=== PATIENT | female | born 1995 | race American Indian/Alaskan Native ===

== ENCOUNTER 2017-10-14 14:37 | Emergency (ER) | payer BC ==
[2017-10-14 15:48] LABS: Basophils % (Auto) 0.6 % (0.0-1.8); Eosinophils % (Auto) 0.3 % (0.0-4.3); Hematocrit 37.8 % (30.3-42.9); Hemoglobin 12.4 gm/dl (10.1-14.3); Mean Corpuscular HGB Conc 33 % (30-34); Mean Corpuscular Hemoglobin 27 pg (28-32); Mean Corpuscular Volume 83 fl (79-97); Platelet Count 173 K/mm3 (140-440); Red Blood Count 4.55 M/mm3 (3.65-5.03); Red Cell Distribution Width 14.4 % (13.2-15.2); White Blood Count 8.5 K/mm3 (4.5-11.0)
[2017-10-14 15:50] LABS: Urine Drugs of Abuse Note Disclamer
[2017-10-14 15:51] LABS: Anion Gap 16 mmol/L; BUN/Creatinine Ratio 13; Blood Urea Nitrogen 8 mg/dL (7-17); Calcium 8.5 mg/dL (8.4-10.2); Carbon Dioxide 22 mmol/L (22-30); Chloride 106.1 mmol/L (98-107); Glucose 79 mg/dL (65-100); Potassium 3.4 mmol/L (3.6-5.0); Sodium 141 mmol/L (137-145)
[2017-10-14 16:07] LABS: Creatine Kinase MB 1.7 ng/mL (0.0-4.0)
[2017-10-14 16:08] LABS: Creatine Kinase 192 units/L (30-135)
--- NOTE | 2017-10-14 16:20 | Emergency Department Report ---
ED Psych HPI - General Chief Complaint: Psych Stated Complaint: ATTEMPTED SUICIDE Time Seen by Provider: 10/14/17 15:19 Source: patient, EMS Mode of arrival: Stretcher - History of Present Illness Initial Comments: 22 YO MERARI WHO BECAME DEPRESSED ONE WEEK AGO AND THEN RESEARCH ON [employer] HOW TO KILL HERSELF WITH CARBON MONOXIDE POISONING. SHE DID NOT DISCUSS WHAT PROMPTD HER TO ATTEMPT TO KILL HERSELF BUT JUST CRIED WHILE SHE SPOKE ME. MD Complaint: suicidal ideation, feels depressed -: week(s) (1) Associated Psychiatric Symptoms: depression, suicidal ideation History of same: No - Related Data Allergies Allergy/AdvReac Type Severity Reaction Status Date / Time No Known Allergies Allergy Unverified 10/14/17 14:41 ED Review of Systems ROS: Stated complaint: ATTEMPTED SUICIDE Other details as noted in HPI Constitutional: denies: chills, fever Eyes: denies: eye pain, eye discharge, vision change ENT: denies: ear pain, throat pain Respiratory: denies: cough, shortness of breath, wheezing Cardiovascular: denies: chest pain, palpitations Endocrine: no symptoms reported Gastrointestinal: denies: abdominal pain, nausea, diarrhea Genitourinary: denies: urgency, dysuria, discharge Musculoskeletal: denies: back pain, joint swelling, arthralgia Skin: denies: rash, lesions Neurological: denies: headache, weakness, paresthesias Psychiatric: depression. denies: anxiety Hematological/Lymphatic: denies: easy bleeding, easy bruising ED Past Medical Hx - Past Medical History Previous Medical History?: Yes Hx Psychiatric Treatment: Yes (hx of SA) - Surgical History Past Surgical History?: No - Social History Smoking Status: Current Every Day Smoker Substance Use Type: Marijuana ED Physical Exam - General Limitations: No Limitations General appearance: alert, in distress (SMELLS OF SMOKE) - Head Head exam: Present: atraumatic, normocephalic - Eye Eye exam: Present: normal appearance, EOMI - ENT ENT exam: Present: mucous membranes moist - Neck Neck exam: Present: normal inspection - Respiratory Respiratory exam: Present: normal lung sounds bilaterally. Absent: respiratory distress, wheezes - Cardiovascular Cardiovascular Exam: Present: normal rhythm, tachycardia. Absent: systolic murmur, diastolic murmur, rubs, gallop - GI/Abdominal GI/Abdominal exam: Present: soft, normal bowel sounds. Absent: distended, tenderness - Rectal Rectal exam: Present: deferred - Extremities Exam Extremities exam: Present: normal inspection, full ROM - Back Exam Back exam: Present: normal inspection, full ROM - Neurological Exam Neurological exam: Present: alert, oriented X3, CN II-XII intact - Psychiatric Psychiatric exam: Present: depressed - Skin Skin exam: Present: warm, dry, intact, normal color. Absent: rash ED Course Vital Signs 10/14/17 10/14/17 10/14/17 14:41 15:17 18:30 Temperature 98.5 F 98 F Pulse Rate 112 H 94 H 73 Respiratory 22 20 16 Rate Blood Pressure 162/88 Blood Pressure 158/95 117/65 [Left] O2 Sat by Pulse 100 100 Oximetry 10/14/17 19:23 Temperature Pulse Rate Respiratory Rate Blood Pressure Blood Pressure [Left] O2 Sat by Pulse 100 Oximetry ED Medical Decision Making - Lab Data Result diagrams: 10/14/17 15:19 10/14/17 15:19 - EKG Data -: EKG Interpreted by Me EKG shows normal: sinus rhythm, axis, intervals, QRS complexes - EKG Data Interpretation: nonspecific ST-T wave ana laura - Radiology Data Radiology results: report reviewed (CXR: NEGATIVE) - Medical Decision Making I WILL NOT TREAT FOR UTI I FEEL THT THE PT HAS A DIRTY URINE SAMPLE. Critical care attestation.: If time is entered above; I have spent that time in minutes in the direct care of this critically ill patient, excluding procedure time. ED Disposition Clinical Impression: Suicide attempt, Marijuana abuse, Hypokalemia Depression Qualifiers: Depression Type: unspecified Qualified Code(s): F32.9 - Major depressive disorder, single episode, unspecified Obesity Qualifiers: Obesity type: due to excess calories Obesity classification: adult class 3 ( BMI >= 40) Serious obesity comorbidity presence: without serious comorbidity Body mass index: BMI 45.0-49.9 Qualified Code(s): E66.01 - Morbid (severe) obesity due to excess calories; Z68.42 - Body mass index (BMI) 45.0-49.9, adult ; Z68.42 - Body mass index (BMI) 45.0-49.9, adult; Z68.42 - Body mass index (BMI ) 45.0-49.9, adult; Z68.42 - Body mass index (BMI) 45.0-49.9, adult Disposition: DC/TX-65 PSY HOSP/PSY UNIT Is pt being admited?: Yes Does the pt Need Aspirin: No Condition: Serious Referrals: LUNA GREENBERG MD [Primary Care Provider] - 3-5 Days Time of Disposition: 19:35
[2017-10-14 16:27] LABS: Bilirubin,Urine NEG (Negative); Blood,Urine NEG (Negative); Ketones,Urine NEG (Negative); Leukocyte Esterase,Urine SM (Negative); Mucus,Urine FEW /HPF; Nitrite,Urine NEG (Negative); Protein,Urine <15 mg/dL mg/dL (Negative); Urobilinogen,Urine < 2.0 mg/dL (<2.0)
[2017-10-14 16:36] LABS: ISTAT Base Excess 0; ISTAT HCO3 24.4; ISTAT PCO2 38.1 (35-45); ISTAT PH 7.415 (7.35-7.45); ISTAT PO2 490 (80-105); ISTAT SO2 100; ISTAT TCO2 26
--- NOTE | 2017-10-14 18:19 | XRay Report ---
FINAL REPORT EXAM: XR CHEST 1V AP HISTORY: CO POISONING,ATTEMPTED SUICIDE TECHNIQUE: AP portable view of the chest PRIORS: None. FINDINGS: Lines, tubes, and devices: N/A Lungs and pleura: Trachea is normal in position. Lungs are clear of infiltrate, pleural effusion, vascular congestion, or pneumothorax. Cardiomediastinal silhouette: Cardiac silhouette is prominent in view of the projection. Other: Bony structures are intact. IMPRESSION: No acute cardiopulmonary process seen.
[2017-10-14] MEDS ORDERED: K-DUR PO ONE ×2 (19:52→22:11)
[2017-10-14 22:15] VITALS: BP 121/55
== END 2017-10-15 00:56 ==
LOC: ED 14:37
DX: F32.9 Major depressive disorder, single episode, unspecified (principal); R45.851 Suicidal ideations; E66.01 Morbid (severe) obesity due to excess calories; E87.6 Hypokalemia; F12.10 Cannabis abuse, uncomplicated; F17.200 Nicotine dependence, unspecified, uncomplicated
CPT/HCPCS: 36415; 71010; 80048; 80307; 81001; 81025; 82550; 82553; 82803; 84484; 85025; 93005; 93010; 99285; G0480; 80320

== ENCOUNTER 2021-01-04 17:44 | Emergency (ER) | payer BC ==
[2021-01-04] MEDS ORDERED: diphenhydrAMINE 25 MG CAP PO ONE (17:57)
[2021-01-04] MEDS ORDERED: METOCLOPRAMIDE 10 MG TAB PO ONE (17:57)
[2021-01-04] MEDS ORDERED: BUTALB/ACETAMINOPHEN/CAFFEINE TAB PO ONE (17:57)
[2021-01-04 18:17] VITALS: BP 152/98
--- NOTE | 2021-01-04 18:35 | Emergency Department Report ---
ED Headache HPI - General Chief Complaint: Headache Stated Complaint: HEAD PAIN Time Seen by Provider: 01/04/21 17:57 Source: patient, RN notes reviewed Exam Limitations: no limitations - History of Present Illness Initial Comments: This is a 25-year-old female nontoxic, well nourished in appearance, no acute signs of distress presents to the ED with c/o of acute on chronic headache since last year. Patient stated had a accident and since then has intermittent headache. Had a CT scan last year but does not know the results. Patient describes headache as diffuse with level of 8 out of 10. Stated [id number] medication with no significant relief. Patient denies thunderclap headache. Patient denies any radiation of pain. Patient denies any acute injuries or head trauma. Patient denies any visual changes. Patient denies worse headache. Patient stated that darkness makes headache better and bright lights make the headache worse. Patient denies any numbness, tingling, fever, chills, nausea, vomiting, chest pain, shortness of breath, stiff neck. Patient denies facial drooping or one sided weakness. Patient denies any radiation of pain. Patient denies any allergies or significant past medical history. Timing/Duration: episodic Quality: moderate, achy Head Injury Location: other (Diffuse) Recent Head Trauma: occasional headaches Associated Symptoms: denies symptoms. denies: confusion, fatigue, facial pain, fever/chills, flushing, loss of consciousness, nausea/vomiting, nasal congestion, nasal drainage, numbness in legs/feet, rash, seizures, sinus infection, stiff neck, vision changes, weakness Allergies/Adverse Reactions: Allergies No Known Allergies Allergy (Verified 01/04/21 17:53) Home Medications: Ambulatory Orders Butalb/Acetaminophen/Caffeine [Fioricet 50-300-40 mg CAP] 1 cap PO Q8HR PRN #12 cap 01/04/21 ED Review of Systems ROS: Stated complaint: HEAD PAIN Other details as noted in HPI Comment: All other systems reviewed and negative Constitutional: denies: chills, fever Eyes: denies: eye pain, eye discharge, vision change ENT: denies: ear pain, throat pain Respiratory: denies: cough, shortness of breath, wheezing Cardiovascular: denies: chest pain, palpitations Endocrine: no symptoms reported Gastrointestinal: denies: abdominal pain, nausea, diarrhea Genitourinary: denies: urgency, dysuria, discharge Musculoskeletal: denies: back pain, joint swelling, arthralgia Skin: denies: rash, lesions Neurological: headache. denies: weakness, paresthesias Psychiatric: denies: anxiety, depression Hematological/Lymphatic: denies: easy bleeding, easy bruising ED Past Medical Hx - Past Medical History Previous Medical History?: No Hx Psychiatric Treatment: Yes (hx of SA) - Surgical History Past Surgical History?: No - Social History Smoking Status: Current Every Day Smoker Substance Use Type: Alcohol - Medications Home Medications: Home Medications Medication Instructions Recorded Confirmed Last Taken Type Butalb/Acetaminophen/Caffeine 1 cap PO Q8HR PRN #12 cap 01/04/21 Unknown Rx [Fioricet 50-300-40 mg CAP] ED Physical Exam - General Limitations: No Limitations General appearance: alert, in no apparent distress - Head Head exam: Present: atraumatic, normocephalic - Eye Eye exam: Present: normal appearance, PERRL, EOMI - ENT ENT exam: Present: normal exam, normal orophraynx - Neck Neck exam: Present: normal inspection, full ROM. Absent: tenderness, meningismus, lymphadenopathy - Respiratory Respiratory exam: Absent: respiratory distress - Cardiovascular Cardiovascular Exam: Present: regular rate - Extremities Exam Extremities exam: Present: normal inspection, full ROM - Back Exam Back exam: Present: normal inspection, full ROM. Absent: tenderness, CVA tenderness (R), CVA tenderness (L), muscle spasm, paraspinal tenderness, vertebral tenderness, rash noted - Neurological Exam Neurological exam: Present: alert, oriented X3, normal gait - Expanded Neurological Exam Expanded Patient oriented to: Present: person, place, time Cranial nerves: EOM's Intact: Normal, Facial Sensation: Normal Cerebellar function: Finger to Nose: Normal Upper motor neuron: Pronator Drift: Normal, Sensory Extinction: Normal Motor strength exam: RUE: 5, LUE: 5, RLE: 5, LLE: 5 Best Eye Response ([place]): (4) open spontaneously Best Motor Response ([place]): (6) obeys commands Best Verbal Response ([place]): (5) oriented Ajay Total: 15 - Psychiatric Psychiatric exam: Present: normal affect, normal mood - Skin Skin exam: Present: warm, dry, intact, normal color. Absent: rash ED Course Vital Signs 01/04/21 17:57 Temperature 98.9 F Pulse Rate 91 H Respiratory 18 Rate Blood Pressure 152/98 O2 Sat by Pulse 100 Oximetry - Reevaluation(s) Reevaluation #1: 01/04/21 18:34 Patient is speaking in full sentences with no signs of distress noted. ED Medical Decision Making - Radiology Data [facility] [address] [place] [address] Cat Scan Report Signed Patient: HARVEY RAMOS MR#: [id number] : 1995 Acct:[id number] Age/Sex: 25 / F ADM Date: 01/04/21 Loc: ED Attending Dr: Ordering Physician: GWYN KAPLAN NP Date of Service: 01/04/21 Procedure(s): CT head/brain wo con Accession Number(s): [id number] cc: GWYN KAPLAN NP NONENHANCED CT SCAN OF THE HEAD: INDICATION / CLINICAL INFORMATION: 25 years Female; headache. TECHNIQUE: Routine CT head without contrast. All CT scans at this location are performed using CT dose reduction for ALARA by means of automated exposure control. COMPARISON: None. FINDINGS: BRAIN / INTRACRANIAL CONTENTS: No acute hemorrhage, mass effect, midline shift, hydrocephalus, or acute, large territorial infarct. No chronic infarct or focal atrophy. Normal brain volume and ventricular/sulcal size for age. No significant white matter abnormality. CRANIOCERVICAL JUNCTION: No significant abnormality. ORBITS: No significant abnormality of visualized orbits. SINUSES / MASTOIDS: No significant abnormality of the visualized paranasal sinuses or mastoid air cells. ADDITIONAL FINDINGS: None. IMPRESSION: No acute focal parenchymal lesion Signer Name: Kathie Enriquez MD Signed: 01/04/2021 7:12 PM Workstation Name: [id number] Transcribed By: BS Dictated By: Kathie Gomez MD Electronically Authenticated By: Kathie Gomez MD Signed Date/Time: 01/04/211911 DD/ 09 TD/TT: - Medical Decision Making This is a 25-year-old female that presents with headache. Patient is stable and was examined by me. Patient is neurologically stable. There is no stiff neck or neck pain. Vital signs are stable. Patient is afebrile. Patient is notified of the CT results with no questions noted by the patient. Patient received Benadryl, Reglan and Fioricet which the patient stated that headache has subsided and resolved. Patient was instructed not to operate any machinery after discharged due to drowsiness of Fioricet. Patient stated that a family member will drive patient home. Patient is discharged with Fioricet. Patient was referred to Follow-up with a primary care/neurologist doctor in 3-5 days or if symptoms worsen and continue return to emergency room as soon as possible. At time of discharge, the patient does not seem toxic or ill in appearance. No acute signs of distress noted. Patient agrees to discharge treatment plan of care. No further questions noted by the patient. Critical care attestation.: If time is entered above; I have spent that time in minutes in the direct care of this critically ill patient, excluding procedure time. ED Disposition Clinical Impression: Headache Disposition: DC-01 TO HOME OR SELFCARE Is pt being admited?: No Does the pt Need Aspirin: No Condition: Stable Additional Instructions: Follow-up with a primary care doctor in 3-5 days or if symptoms worsen and continue return to emergency room as soon as possible. Prescriptions: Butalb/Acetaminophen/Caffeine [Fioricet 50-300-40 mg CAP] 1 cap PO Q8HR PRN #12 cap PRN Reason: Headache Referrals: PRIMARY CAREMD [Referring] - 3-5 Days ELBA BABB MD [Staff Physician] - 3-5 Days Forms: Work/School Release Form(ED) Time of Disposition: 19:22
--- NOTE | 2021-01-04 19:16 | Cat Scan Report ---
NONENHANCED CT SCAN OF THE HEAD: INDICATION / CLINICAL INFORMATION: 25 years Female; headache. TECHNIQUE: Routine CT head without contrast. All CT scans at this location are performed using CT dos e reduction for ALARA by means of automated exposure control. COMPARISON: None. FINDINGS: BRAIN / INTRACRANIAL CONTENTS: No acute hemorrhage, mass effect, midline shift, hydrocephalus, or acu te, large territorial infarct. No chronic infarct or focal atrophy. Normal brain volume and ventricul ar/sulcal size for age. No significant white matter abnormality. CRANIOCERVICAL JUNCTION: No significant abnormality. ORBITS: No significant abnormality of visualized orbits. SINUSES / MASTOIDS: No significant abnormality of the visualized paranasal sinuses or mastoid air agata ls. ADDITIONAL FINDINGS: None. IMPRESSION: No acute focal parenchymal lesion Signer Name: Kathie Enriquez MD Signed: 01/04/2021 7:12 PM Workstation Name: [id number]
== END 2021-01-04 20:00 | disposition home or self-care (01) ==
LOC: ED 17:44
DX: R51.9 Headache, unspecified (principal); F17.200 Nicotine dependence, unspecified, uncomplicated; Z79.899 Other long term (current) drug therapy
CPT/HCPCS: 70450

== ENCOUNTER 2021-07-14 10:07 | Emergency (ER) | payer BC ==
[2021-07-14 10:20] VITALS: BP 144/82
== END 2021-07-14 10:30 | disposition left against medical advice (07) ==
LOC: ED 10:07
DX: S09.90XA Unspecified injury of head, initial encounter (principal); Z53.21 Procedure and treatment not carried out due to patient leaving prior to being seen by health care provider